=== PATIENT | female | born 1960 | race Caucasian/White ===

== ENCOUNTER → 2017-01-25 | Day surgery (SDC) | payer BC ==
[2017-01-18 10:38] VITALS: Ht 157.5 cm; Wt 54.5 kg
[~2017-01-25] VITALS: Ht 157.5 cm; Wt 54.5 kg
[~2017-01-25] MED LIST: ACETAMINOPHEN 500 MG TAB PO ONE; ACETAMINOPHEN 500 MG TAB PO STA; ATROPINE SULFATE 0.1 MG/ML 5ML SYR IV PRN; CYCL5TAB PO; ENDOSCOPIC MARKER 5 ML SYR ONE; EpHEDrine SULFATE INJ 50 MG/ML AMP IV PRN; LIDOCAINE HCL 2% 2 ML VIAL (20MG/ML) ONE; METH500T3 PO; NURSING VERBAL MED ORDER ONE; PROPOFOL IV EMULSION 10 MG/ML 20 ML VIAL IV ONE; SODIUM CHLORIDE 0.9% 500ML 500 ML IV ONE; SUMA50TA15 PO
--- NOTE | 2017-01-25 10:30 | Endo History and Physical ---
History & Physical Date of Service: Jan 25, 2017. Chief Complaint: Screening Referring Physician: Eloy Barr History of Present Illness Screening Past Surgical History Hx Cardiac Surgery: No Hx Internal Defibrillator: No Hx Pacemaker: No Hx Abdominal Surgery: No Hx of Implantable Prosthesis: No Hx Cancer Surgery: No Hx Thoracic Surgery: No Hx Orthopedic: No Hx Urinary Tract Surgery: No Family History Polyp Social History Smoking Status: Never Smoker Hx Substance Use: No Hx Alcohol Use: No Allergies Coded Allergies: No Known Allergies (Unverified , 01/18/17) Current Medications Reported Home Medications Medications Dose Route/Sig Max Daily Dose Days Date Category Dose Instructions Citrucel (Methylcellulose (Laxative)) 500 Mg Tab 1-2 Tab PO QAM 01/18/17 Reported Flexeril (Cyclobenzaprine Hcl) 5 Mg Tab 5 Mg PO UD PRN 01/18/17 Reported PRN Imitrex (Sumatriptan Succinate) 50 Mg Tab 50 Mg PO UD PRN 01/18/17 Reported Vital Signs Weight (Kilograms): 54.55 Height (Feet): 5 Height (Inches): 2 Date Time Temp Pulse Resp B/P (MAP) Pulse Ox O2 Delivery O2 Flow Rate FiO2 01/25/17 09:55 37 81 18 129/80 (96) 99 Room Air Physical Exam General Appearance: no apparent distress Respiratory/Chest: Respiratory effort: no dyspnea Cardiovascular: Heart Auscultation: RRR Assessment and Plan Cscopy for CRC screening
--- NOTE | 2017-01-25 11:33 | Anesthesiology Progress Note ---
Anesthesia Post Op Note Date & Time Jan 25, 2017 at 11:33 Vital Signs Vital Signs Past 12 Hours Date Time Temp Pulse Resp B/P (MAP) Pulse Ox O2 Delivery O2 Flow Rate FiO2 01/25/17 09:55 37 81 18 129/80 (96) 99 Room Air Notes Mental Status: alert / awake / arousable, participated in evaluation Pt Amnestic to Procedure: Yes Nausea / Vomiting: adequately controlled Pain: adequately controlled Airway Patency, RR, SpO2: stable & adequate BP & HR: stable & adequate Hydration State: stable & adequate Anesthetic Complications: no major complications apparent
--- NOTE | 2017-01-25 11:39 | GI REPORT ---
Procedure Date: 01/25/2017 9:58 AM Procedure: Colonoscopy Indications: Screening for colorectal malignant neoplasm Medicines: See the Anesthesia note for documentation of the administered medications Complications: No immediate complications. Estimated Blood Loss: Estimated blood loss: none. Procedure: Pre-Anesthesia Assessment: - ASA Grade Assessment: II - A patient with mild systemic disease. After I obtained informed consent, the scope was passed under direct vision. Throughout the procedure, the patient's blood pressure, pulse, and oxygen saturations were monitored continuously. The scope was introduced through the anus and advanced to the terminal ileum. The colonoscopy was performed without difficulty. The patient tolerated the procedure well. The quality of the bowel preparation was good. Findings: The perianal and digital rectal examinations were normal. A 25 mm polyp was found at 15 cm proximal to the anus. The surface of the polyp was ulcerated, and the polyp was pedunculated. A large endoloop was maneuvered over the polyp stalk and closed at the mucosal attachment prior to removal in order to prevent bleeding. A hot snare was used to resect the polyp. Resection and retrieval were complete. A clip was placed on the polypectomy base. Tattoo was injected at the polypectomy base. Two sessile polyps were found in the sigmoid colon. The polyps were 2 to 3 mm in size. One of these polyps were removed with a cold snare; the other polyp was removed with a forceps. Resection and retrieval were complete. The exam was otherwise without abnormality. Impression: - One 25 mm polyp at 15 cm proximal to the anus. Resected and retrieved. Looped, clipped, tattooed. - Two 2 to 3 mm polyps in the sigmoid colon, removed and retrieved. - The examination was otherwise normal. Recommendation: - Discharge patient to home. Repeat exam based on pathology results. Kiley Jay M.D. Kiley Jay MD 01/25/2017 11:39:08 AM This report has been signed electronically. Note Initiated On: 01/25/2017 9:58 AM I attest to the content of the Intraoperative Record and orders documented therein, exceptions below
--- NOTE | 2017-01-25 12:44 | Discharge Instructions ---
Endoscopy Patient Instructions Date / Procedure(s) Performed Jan 25, 2017. Colonoscopy Allergy Information Coded Allergies: No Known Allergies (Unverified , 01/18/17) Discharge Date / Findings Jan 25, 2017. Large polyp at 15 cm- removed, looped, clipped, tattooed. Two diminutive polyps , removed. Medication Instructions Cipro twice daily for 3 days Provider Instructions Activity Restrictions - No exercising or heavy lifting for 24 hours. - Do not drink alcohol the day of the procedure. - Do not drive a car or operate machinery until the day after the procedure. - Do not make any important decisions or sign important papers in 24 hours after the procedure. Following Day: - Return to full activity which may include returning to work/school. Diet Clear liquids only today. Then adv diet tomorrow. Treatment For Common After Affects For mild abdominal pain, bloating, or excessive gas: - Rest - Eat lightly - Lie on right side Follow-Up Information Follow-up with Eloy Barr as scheduled Anesthesia Information What You Should Know You have had a procedure that required some medicine to reduce anxiety and discomfort. This treatment is called moderate sedation. After receiving the treatment, you may be sleepy, but you will be able to breathe on your own. The effects of the treatment may last for several hours. Follow these instructions along with Activity/Diet recommendations noted above: * Do NOT do anything where dizziness or clumsiness would be dangerous. * Rest quietly at home today, then you can be up and about tomorrow. * Have a responsible person stay with you the rest of today. * You may have had an I.V. today. If so, you may take the dressing off later today. Recommendations Call your doctor if: * Trouble breathing * Continuous vomiting for more than 24 hours * Temperature above 101 degrees * Severe abdominal pain or bloating * Pain not relieved by pain medicine ordered * There is increased drainage or redness from any incision * A large amount of rectal bleeding greater than 2-3 tablespoons. (If you had a polyp/s removed or have hemorrhoids, a small amount of blood - from the rectum is to be expected.) * You have any unanswered questions or concerns. IN THE EVENT OF A SERIOUS EMERGENCY, GO TO THE NEAREST EMERGENCY ROOM Your discharge instructions were prepared by provider Kiley Sawant. Patient Instructions Signature Page Payal Mullins Patient (or Guardian) Signature/Date: I have read and understand the instructions given to me by my caregivers. Caregiver/RN/Doctor Signature/Date: The above-named patient and/or guardian has received patient instructions on this date. + Original Patient Signature Page (only) stays with chart. Please make copy for patient.
[2017-01-25 12:58] VITALS: BP 126/74; PULSE 78; O2SAT 98
== END | disposition home or self-care (01) ==
LOC: C.GI 09:22
PROVIDERS: ATTEND Internal Medicine Gastroenterology
DX: Z12.11 Encounter for screening for malignant neoplasm of colon (principal); K63.5 Polyp of colon

== ENCOUNTER → 2017-06-23 | Outpatient (CLI) | payer BC ==
[~2017-06-23] MED LIST changes: -ACETAMINOPHEN 500 MG TAB PO ONE; -ACETAMINOPHEN 500 MG TAB PO STA; -ATROPINE SULFATE 0.1 MG/ML 5ML SYR IV PRN; -ENDOSCOPIC MARKER 5 ML SYR ONE; -EpHEDrine SULFATE INJ 50 MG/ML AMP IV PRN; -LIDOCAINE HCL 2% 2 ML VIAL (20MG/ML) ONE; -NURSING VERBAL MED ORDER ONE; -PROPOFOL IV EMULSION 10 MG/ML 20 ML VIAL IV ONE; -SODIUM CHLORIDE 0.9% 500ML 500 ML IV ONE
== END | disposition home or self-care (01) ==
LOC: C.LABSPEC 17:47
PROVIDERS: ATTEND Obstetrics & Gynecology
DX: L29.8 Other pruritus (principal)

== ENCOUNTER → 2017-06-23 | Outpatient (CLI) | payer BC | END | disposition home or self-care (01) | LOC: C.PAPS 18:15 | PROVIDERS: ATTEND Obstetrics & Gynecology | DX: Z01.419 Encounter for gynecological examination (general) (routine) without abnormal findings (principal) ==